=== PATIENT | male | born 1965 | race Caucasian/White ===

== ENCOUNTER → 2020-08-10 13:49 | Outpatient (BNVA) | payer OTHER, SELFPAY | PROVIDERS: Visit Provider Orthopaedic Surgery | DX: Z76.89 Persons encountering health services in other specified circumstances (principal) ==

== ENCOUNTER → 2020-09-21 12:22 | Outpatient (BNVA) | payer OTHER, SELFPAY | PROVIDERS: Visit Provider Orthopaedic Surgery | DX: Z76.89 Persons encountering health services in other specified circumstances (principal) ==

== ENCOUNTER 2020-10-31 08:00 | Outpatient (RCR) | payer OTHER, SELFPAY ==
--- NOTE | 2020-08-11 15:24 | MHC.PT.OD ---
[facility] [place] Office [place] Office [place] Office [address] Zafar Ryan [address] [phone] F: [phone] F: [phone] F: [phone] F: [phone] Physical Therapy Daily Note Diagnosis: Date of Surgery: 07/04/20 Date of Evaluation: 08/01/20 Treatments to Date: 4 Cancellations to Date: 0 No Shows to Date: 0 Authorized Visits: 26 Insurance End Date: 10/30/20 Precautions/ Contraindications:L QUAD TENDON REPAIR 07/04/20, aortic dissection (Nov 2018), HTN Subjective: Pt reports px levels are decreasing overall except for end range of stretching Pain Score: 4 Pain Location: scar Objective Flowsheet: Tests & Measures AROM=65* on ARRIVAL,PROM 75* END OF SESSION Slight ext lag only w/SLR Exercises Heel slide with strap and sliding board- 10 second hold SLR 3 X10 ISOMETRIC EXT MULTILEVEL 75* and 60* 1 x 10 ea 75*-45* ext 2 x 10 mini squat w/brace @30* flex max 2 x 10 wt shift on air ex lat/pf/df/CW/CCW x 30 STM for quad . Manual STM around knee and gentle massage to decrease swelling Modalities Assessment: Pt clayton 75* Flex PROM, 65* AROM. Pt clayton 75*-45* AROM Unlock brace 10* on week of 08-14-20 FROM EVAL: Pt is s/p repair of left quadriceps tendon on 07/04/[address] Pandya. He is weight bearing as tolerated and axillary crutches and brace locked in extension. Physical impairments include: decreased left knee ROM, impaired strength, edema, impaired quad control, impaired weight bearing, proprioceptive deficits, and gait deviations. Related functional limitations include: difficulty walking, negotiating stairs, squatting, performing personal care tasks, lifting, driving, standing, and performing bed mobility. Pt is an excellent candidate for physical therapy and will be seen 2-3x/week for 10 weeks in order to reduce impairments and improve limitations. Will follow quadriceps tendon protocol. Initial LEFI: . PT Plan: QUAD TENDON REPAIR PROTOCOL IN CHART: FROM SCRIPT 07/14/20 Isometric quad exercises, ankle pumps, WBAT with brace locked in extension, unlock to 15 degrees when not working and increase by 15 degrees each week. Unlock brace 10* on week of 08-14-20 Discharge Today? No Short Term Goals: In 3 weeks, Pt will demonstrate at least 100 degrees per protocol. In 5 weeks, Pt will demonstrate the ability to ambulate safely w/o brace during treatment sessions. 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 In 10 weeks, Pt to return to all activities of daily living. In 10 weeks, Pt to improve LEFI by at least 18 points. In 8 weeks, Pt to demonstrate full knee ROM.
--- NOTE | 2020-11-14 14:51 | MHC.PT.DC ---
[facility] [place] Office [place] Office [place] Office [address] Zafar Ryan 140 [facility] [phone] F: [phone] F: [phone] F: [phone] F: [phone] Physical Therapy Discharge Report Diagnosis: QUAD TENDON REPAIR Date of Surgery: 07/04/20 Date of Evaluation: 08/01/20 Date of Discharge: 10/31/20 Treatments to Date: 23 Cancellations to Date: 0 No Shows to Date: 0 Discharge Status: Achieved Goals Improved Function Independent with HEP Discharge Summary: GUNJAN DID WELL WITH THERAPY. HE WAS ABLE TO MEET ALL GOALS AND RETURN TO WORK WITHOUT RESTRICTION. HE IS ABLE TO SELF MANAGE ANY RESIDUAL SYMPTOMS AT THIS TIME AND IS INDEPENDENT WITH HIS HEP. BOTH ROM AND STRENGTH ARE WFLs. Electronically signed by: HIPOLITO SANCHES PT, DPT Please sign and return to therapist. Thank you for your referral.
== END 2020-11-14 14:55 | disposition other institution (70) ==
LOC: HO.PT 08:00
PROVIDERS: Visit Provider Physician Assistant
DX: S76.112D Strain of left quadriceps muscle, fascia and tendon, subsequent encounter (principal)
CPT/HCPCS: 97110; 97112; 97140; 97530

== ENCOUNTER 2025-06-05 15:53 | Emergency (ER) | payer OTHER, SELFPAY ==
--- NOTE | ~2025-06-05 | XR_ITS ---
CLINICAL HISTORY: Right knee pain Radiographs of the right knee, 4 views Comparison: None available Findings: There is no fracture or dislocation. No joint space narrowing. Trace patellofemoral compartment osteophytosis. Bone mineralization is normal. Moderate-sized joint effusion. Soft tissue swelling. Impression: No fracture. Moderate-sized joint effusion. Minimal degenerative change. This document has been electronically signed by: Bri Toribio MD on 06/05/2025 16:55:07
[2025-06-05 16:14] VITALS: BP 116/73; PULSE 72; RESP 18; TEMP 36.3; O2SAT 97; BMI 29.0
--- NOTE | 2025-06-05 16:18 | ED.GENADULT ---
HPI - General Adult General Chief complaint: Extremity Injury, Lower Stated complaint: slipped. possible right knee dislocation Time Seen by Provider: 06/05/25 18:05 Source: patient Limitations: no limitations History of Present Illness ED Provider: Deedee Mckeon PA-C HPI narrative: 59-year-old male presents with right knee pain. Patient states he was hiking, he subsequently slipped, falling, twisting his knee. Patient states he is able to bear weight, however he has limited range of motion secondary to swelling, and he feels as if ?the knee is locking up?. Denies use of blood thinners. Related Data Home Medications ?Medication ?Instructions ?Recorded ?Confirmed atorvastatin 80 mg tablet 80 mg PO BEDTIME 08/05/20 09/21/20 chlorthalidone 25 mg tablet 25 mg PO DAILY 08/05/20 09/21/20 isosorbide mononitrate 60 mg 60 mg PO DAILY 08/05/20 09/21/20 tablet,extended release 24 hr labetalol 200 mg tablet 600 mg PO TID 08/05/20 09/21/20 naproxen 500 mg tablet 500 mg PO Q12H 08/05/20 09/21/20 nifedipine 30 mg tablet,extended mg PO 08/05/20 09/21/20 release oxycodone 5 mg tablet 5 mg PO Q4H PRN moderate pain 08/05/20 09/21/20 Allergies Allergy/AdvReac Type Severity Reaction Status Date / Time No Known Allergies (No Known Allergy Verified 06/05/25 16:16 Allergies*) Review of Systems Review of Systems: Yes all other systems are reviewed and are negative Constitutional: Constitutional: Denies fatigue and Denies fever(s) Musculoskeletal: Musculoskeletal: Reports arthralgias and Reports joint swelling Endocrine: Endocrine: Denies fatigue PMF Past Medical History Attestation statement: The following information was validated with the patient. 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 Physical Exam ED Exam Exam: Alert well-appearing Vital Signs: Vital Signs - 24 hr 06/05/25 16:14 Temperature 97.4 F Pulse Rate 72 Respiratory Rate 18 Blood Pressure 116/73 Pulse Oximetry 97 Oxygen Delivery Method Room Air BMI result Body Mass Index 29.0 Const Orientation/consciousness: patient oriented x3 Resp Effort & Inspection: normal respiratory effort Cardio Other: Normal peripheral perfusion Skin Other: Warm dry no rash Neuro General: patient oriented x3, no focal motor deficits and CN's II-XI intact bilaterally Extrem Other: Swelling superior to the knee, limited flexion secondary to discomfort Psych Other: Cooperative Course Course Course Narrative: RME: 59 yold male presents to the ED for right knee pain after twisting knee while hiking and felt like knee when out of place. patient sttaes now knee is swollen and is not able to bear weight. Xray ordred Medical Decision Making Medical Decision Making [facility] Narrative: 59-year-old male presents with right knee pain. Patient states he was hiking, he subsequently slipped, falling, twisting his knee. Patient states he is able to bear weight, however he has limited range of motion secondary to swelling, and he feels as if ?the knee is locking up?. Denies use of blood thinners. No underlying relevant chronic issues History: Per patient I have considered the following differential diagnoses: Fracture, dislocation, contusion, sprain Plan: X-ray ordered from triage, there was no fracture or dislocation, the patient does have arthritic changes with osteophytes, and a joint effusion. He has a knee immobilizer, we will send with crutches. He already has a an orthopedist steady sees. I have independently reviewed the following tests: X-ray right knee:Findings: There is no fracture or dislocation. No joint space narrowing. Trace patellofemoral compartment osteophytosis. Bone mineralization is normal. Moderate-sized joint effusion. Soft tissue swelling. Impression: No fracture. Moderate-sized joint effusion. Minimal degenerative change. Discharge Plan Discharge Clinical Impression: Right knee sprain Patient Disposition: Home, Self-Care Instructions: Knee Sprain (ED), P.R.I.C.E. Treatment (ED) Additional Instructions: The x-ray was negative for fracture or dislocation, you do have a joint effusion, which is a collection of fluid secondary to your trauma. You also have arthritic changes noted in the x-ray read. You need to follow up with your orthopedist, you may have a ligamentous injury and require MRI as an outpatient. In the meantime use the knee immobilizer and crutches. Take either ibuprofen 600 mg taken every 6 hours with food, or naproxen 500 mg taken every 12 hours, as an anti-inflammatory. Prescriptions: No Action nifedipine 30 mg tablet extended release PO isosorbide mononitrate 60 mg tablet extended release 24 hr 60 mg PO DAILY chlorthalidone 25 mg tablet 25 mg PO DAILY labetalol 200 mg tablet 600 mg PO TID atorvastatin 80 mg tablet 80 mg PO BEDTIME oxycodone 5 mg tablet 5 mg PO Q4H PRN (Reason: moderate pain) naproxen 500 mg tablet 500 mg PO Q12H Discharge Date/Time: 06/05/25 19:23 Print Language: Argentine
== END 2025-06-05 19:23 | disposition home or self-care (01) ==
PROVIDERS: Emergency Provider Emergency Medicine
DX: S83.91XA Sprain of unspecified site of right knee, initial encounter (principal); M25.561 Pain in right knee; W01.0XXA Fall on same level from slipping, tripping and stumbling without subsequent striking against object, initial encounter; Y93.9 Activity, unspecified; Y92.9 Unspecified place or not applicable; Y99.8 Other external cause status; Z79.899 Other long term (current) drug therapy
CPT/HCPCS: 73564; 99281; 99283

== ENCOUNTER → 2025-06-05 16:17 | Outpatient (BNV) | payer OTHER, SELFPAY | PROVIDERS: Visit Provider Radiology Diagnostic Radiology | DX: M25.461 Effusion, right knee (principal) | CPT/HCPCS: 73564 ==

== ENCOUNTER 2025-06-06 12:58 | Outpatient (AMB) | payer OTHER, SELFPAY ==
--- NOTE | 2025-06-06 13:07 | A.OFFVIS_ITS ---
Vital Signs 06/06/25 13:20 Height 6 ft 1 in Weight 220 lb BMI 29.0 BP 140/97 H Blood Pressure Location Lt brachial Position Sitting Pulse 66 Intake Visit Reasons: ED f/u Right knee sprain/effusion Intake Note: Mckinley is a 59 year old male who presents today as a new patient for an ER follow up of right knee. Patient was hiking when he slipped causing him to falling, twisting his knee. X-rays were taken and he was referred to orthopedics. Patient reports discomfort inside his knee with bending. States yesterday he could not even bend his knee. Hx of left knee surgery. Allergies No Known Allergies (No Known Allergies*) Allergy (Verified 06/06/25 14:05) Medication List - Last Reconciled 06/06/25 by Farzana Jamison PA-C atorvastatin 80 mg PO BEDTIME chlorthalidone 25 mg PO DAILY isosorbide mononitrate ER 60 mg PO DAILY labetalol 600 mg PO TID naproxen 500 mg PO Q12H nifedipine ER mg PO HPI HPI ED f/u Right knee sprain/effusion: Details: 59 yo male presents to the office today for an injury he sustained to the right knee on 06/05/25 while hiking, he slipped and fell. He states there was something that felt weird but did not hear a pop. He states there was something limiting his bending. He was able to weight bear. He had a knee brace from previous injury which he is using with crutches. He was seen in the emergency department where x-rays were obtained and he was treated for an effusion and given a knee brace and referred to our office for ortho eval Of note the patient was diagnosed with an aortic dissection many years ago. He has since had left quad tendon repair with Dr. Pandya on 07/04/2020 without complications. He is not on any anticoagulant therapy. He does take medication for high blood pressure which is well controlled. Patient denies any new onset of symptoms which include shortness of breath chest pain or palpitations. Denies wheezing. 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 Review of Systems Const All systems reviewed & are unremarkable except as noted in HPI and below Physical Exam Vital Signs: Last Vital Signs Pulse 66 06/06/25 13:20 BP 140/97 H 06/06/25 13:20 BMI result Body Mass Index 29.0 Const General: cooperative, healthy appearing, comfortable, no acute distress, well developed and alert Orientation/consciousness: patient oriented x3 HEENT Head: Yes normal to inspection, Yes normocephalic and Yes atraumatic Eyes General: appearance normal, both eyes and all related structures Neck Neck: Yes normal visual inspection and Yes no lymphadenopathy Resp Effort & Inspection: normal respiratory effort and able to speak in complete sentences Cardio Rate: regular rate Peripheral pulses: Peripheral pulses 2+ throughout GI Inspection: Yes normal to inspection Palpation (GI): Soft to palpation Skin General skin exam: no rashes or lesions noted Neuro General: patient oriented x3 Extrem Other: Right knee skin is intact. He does have a moderate effusion with a palpable defect along the quad tendon. He is unable to perform active knee extension. Calf is supple and nontender neurovascularly intact. Psych Appearance: grossly normal Mental Status: mental status grossly normal Results Reviewed Results Reviewed: X-rays of the right knee obtained in the office today and reviewed by me show mild PF OA. Assessment & Plan Assessment & Plan (1) Quadriceps tendon rupture: Code(s): S76.119A - Strain of unspecified quadriceps muscle, fascia and tendon, initial encounter Category: Medical Plan: Dr. Pandya was available to see the patient with me today. Based off clinical exam findings the patient does have a an acute right quad tendon rupture which would benefit from surgical intervention for optimal functioning. The patient does understand nonsurgical intervention would result in significantly limited function of the right lower extremity. Given the patient's activity level and desire to continue working and remain active with activities such as hiking and mountain biking, it would be recommended to pursue surgical intervention. We discussed the procedure in detail along with the risks benefits and alternatives. Risks including but not limited to infection, injury to surrounding nerves and tissue and bone, small and large vessels, stiffness, rerupture of the tendon and need for further surgery, DVT/PE along with intraoperative complications including but not limited to . We discussed postoperative recovery which includes a brace for at least 6 weeks. The brace will be locked in extension for the 1st 2 weeks and then we will unlock the brace 15 degrees every week which will be guided by physical therapy. The patient will need to refrain from any type of impact or loading activities for the 1st 6-12 weeks postop. The patient does express understanding we would like to proceed with right quad tendon repair with Dr. Pandya. The patient will be booked accordingly. Orders: Orders XR knee RT 3V Today M17.11 - Unilateral primary osteoarthritis, right knee Coding Level of Care Code New Pt Level 4 (35264) Complex EM visit Add On G2081 Diagnoses Quadriceps tendon rupture S76.119P
[2025-06-06 13:20] VITALS: BP 140/97; PULSE 66; BMI 29.0
--- OUTSIDE RECORDS SUMMARY | 2025-06-06 13:37 | XMS_ITS | Clinical Summary ---
Author Organization [facility] Address [address] [facility] [address] [place] [address] Phone Care Team Providers Care Director Zone Name Role Phone Sharla Lieberman MD Primary Care Provider [phone] Allergies No known active allergies Medications aspirin (ST JESUS ALBERTO) 81 MG EC tablet Take 1 tablet by mouth 1 (one) time each day Active atorvastatin (LIPITOR) 80 MG tablet Take 1 tablet by mouth at bed time Active Docusate Sodium (DSS) 100 MG capsule Take 1 capsule by mouth 2 (two) times a day Active isosorbide mononitrate (IMDUR) 60 MG 24 hr tablet Take 1 tablet by mouth 1 (one) time each day Active labetalol (NORMODYNE) 200 MG tablet Take 1 tablet by mouth 3 (three) times a day Active NIFEdipine CC (ADALAT CC) 30 MG 24 hr tablet Take 1 tablet by mouth 2 (two) times a day Active Active Problems Problem Noted Date Diagnosed Date Acute nontraumatic kidney injury 12/17/2021 Chronic kidney disease stage 2 06/15/2021 Essential hypertension 06/15/2021 Hypertensive renal disease 06/15/2021 Family History Medical History Relation Comments Diabetes Father Hypertension Mother Relation Status Comments Father Mother Alive Social History Tobacco Use Types Packs/Day Years Used Date Smoking Tobacco: Former Smokeless Tobacco: Never Comments:Smoking History Inf o:Every day Alcohol Use Standard Drinks/Week Comments Yes 0 (1 standard drink = 0.6 oz pure alcohol) Alcoholic Drinks/day: Occasional social drink Comments Unknown Sex and Gender Information Value Date Recorded Sex Assigned at Not on file Legal Sex Female 4:56 PM EST Gender Identity Not on file Sexual Orientation Not on file Last Filed Vital Signs Vital Sign Reading Time Taken Comments Blood Pressure 124/60 04/11/2022 3:07 PM EDT Pulse 73 04/11/2022 3:07 PM EDT Temperature - - Respiratory Rate - - Oxygen Saturation 93% 04/11/2022 3:07 PM EDT Inhaled Oxygen Concentration - - Weight 107 kg (235 lb) 04/11/2022 3:07 PM EDT Height 185.4 cm (6' 1 ) 12/17/2021 3:14 PM EST Body Mass Index 31 12/17/2021 3:14 PM EST Plan of Treatment Health Maintenance Due Date Last Done Comments Breast Cancer Screening 1965 Hepatitis B Vaccine (1 of 3 - 19+ 3-dose series) 07/06 Pneumococcal Vaccine: 50+ Years (1 of 2 - PCV) 985 Colorectal Cancer Screening: Annual FOBT 2015 Colorectal Cancer Screening: Colonoscopy 2015 Colorectal Cancer Screening: Sigmoidoscopy 2015 Influenza Vaccine (#1) 2025 Insurance Comprehensive Benefits Comprehensive Benefits Care Teams Director Zone Relationship Specialty Start Date End Date Sharla Lieberman MD [address] [place] [address] PCP - General Internal Medicine 05/26/25
== END 2025-06-06 14:33 | disposition home or self-care (01) ==
LOC: HO.HOS 12:58
PROVIDERS: Visit Provider Physician Assistant
DX: S76.119A Strain of unspecified quadriceps muscle, fascia and tendon, initial encounter (principal)
CPT/HCPCS: 99204

== ENCOUNTER 2025-06-06 12:58 | Outpatient (REF) | payer OTHER, SELFPAY ==
--- NOTE | ~2025-06-06 | XR_ITS ---
EXAMINATION: XR KNEE, RIGHT CLINICAL INFORMATION: M17.11 - Unilateral primary osteoarthritis, right knee COMPARISON: None available. TECHNIQUE: AP bilateral standing, sunrise, and lateral views of the right knee. FINDINGS:Small amount joint fluid is present. There is faint amorphous calcification within the lateral greater than medial meniscus, increased since the prior. Intercondylar tubercles are peaked. There are small marginal osteophytes involving the medial and lateral joint lines and moderate osteophytes involving the lateral patellofemoral joint. There is mild narrowing of the lateral patellofemoral joint. Medial and lateral joint spaces are preserved. 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 Electronically signed by: Gabino Harman MD 06/06/2025 02:05 PM EDT
== END 2025-06-06 12:59 | disposition home or self-care (01) ==
LOC: HO.HOSX 12:58
PROVIDERS: Visit Provider Physician Assistant
DX: S76.111A Strain of right quadriceps muscle, fascia and tendon, initial encounter (principal); I10 Essential (primary) hypertension; I71.00 Dissection of unspecified site of aorta; M17.11 Unilateral primary osteoarthritis, right knee; Z79.899 Other long term (current) drug therapy; W01.0XXA Fall on same level from slipping, tripping and stumbling without subsequent striking against object, initial encounter; Y93.01 Activity, walking, marching and hiking; Y92.89 Other specified places as the place of occurrence of the external cause
CPT/HCPCS: 73562

== ENCOUNTER → 2025-06-06 13:14 | Outpatient (BNV) | payer OTHER, SELFPAY | PROVIDERS: Visit Provider Radiology Diagnostic Radiology | DX: M17.11 Unilateral primary osteoarthritis, right knee (principal) | CPT/HCPCS: 73562 ==

== ENCOUNTER → 2025-06-07 11:50 | Day surgery (SDC) | payer OTHER, SELFPAY ==
--- OUTSIDE RECORDS SUMMARY | 2025-06-07 08:57 | XMS_ITS | Clinical Summary ---
Author Organization [facility] Address [address] [facility] [address] [place] [address] Phone Care Team Providers Care Tilt Wall Supervisor Name Role Phone Sharla Lieberman MD Primary Care Provider [phone] Allergies No known active allergies Medications aspirin [...] Insurance Comprehensive Benefits Comprehensive Benefits Care Teams Tilt Wall Supervisor Relationship Specialty Start Date End Date Sharla Lieberman MD [address] [place] [address] PCP - General Internal Medicine 05/26/25
--- NOTE | 2025-06-07 09:43 | HO.ANESPROP2 ---
Documented by User: Natalya Contreras NP 06/07/25 09:47 HPI - Anesthesia Eval Consult details Narrative: 59 yr old male for right quadricep tendon repair Active, hiker H/O aortic dissection many yrs ago S/P left quad tendon repair in 2019 without complications PMFSH Active Problems Active Problems: All Active Problems (Updated 06/06/25 @ 00:01 by Emily Bautista) Quadriceps tendon rupture (Acute) Past Medical History Medical History Hypertension Aortic dissection Quadriceps tendon rupture Surgical History Surgical History Hx of left knee surgery Social History Social History Alcohol intake: never Patient Tobacco Use Status: Former Tobacco user Have you been hit, kicked, punched, or otherwise hurt by someone within the past year? 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 Meds Allergies Allergy/AdvReac Type Severity Reaction Status Date / Time No Known Allergies (No Known Allergy Verified 06/06/25 14:05 Allergies*) Home Medications ?Medication ?Instructions ?Recorded ?Confirmed ?Last Taken ?Type atorvastatin 80 mg tablet 80 mg PO BEDTIME 08/05/20 06/07/25 06/06/25 History chlorthalidone 25 mg tablet 25 mg PO DAILY 08/05/20 06/07/25 06/07/25 History isosorbide mononitrate 60 mg 60 mg PO DAILY 08/05/20 06/07/25 06/07/25 History tablet,extended release 24 hr labetalol 200 mg tablet 600 mg PO TID 08/05/20 06/07/25 06/07/25 History naproxen 500 mg tablet 500 mg PO Q12H 08/05/20 06/07/25 06/06/25 History nifedipine 30 mg tablet,extended 30 mg PO BID 08/05/20 06/07/25 06/07/25 History release Documented by User: Cristina Abdalla MD 06/07/25 14:00 [facility] Past Medical History Medical History Hypertension Aortic dissection Quadriceps tendon rupture Family History Family history of problems with anesthesia: No Surgical History Surgical History Hx of left knee surgery History of Problems with Anesthesia: No Social History Social History Alcohol intake: never Patient Tobacco Use Status: Former Tobacco user Have you been hit, kicked, punched, or otherwise hurt by someone within the past year? 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 [employer] Allergies Allergy/AdvReac Type Severity Reaction Status Date / Time No Known Allergies (No Known Allergy Verified 06/06/25 14:05 Allergies*) Home Medications ?Medication ?Instructions ?Recorded ?Confirmed ?Last Taken ?Type atorvastatin 80 mg tablet 80 mg PO BEDTIME 08/05/20 06/07/25 06/06/25 History chlorthalidone 25 mg tablet 25 mg PO DAILY 08/05/20 06/07/25 06/07/25 History isosorbide mononitrate 60 mg 60 mg PO DAILY 08/05/20 06/07/25 06/07/25 History tablet,extended release 24 hr labetalol 200 mg tablet 600 mg PO TID 08/05/20 06/07/25 06/07/25 History naproxen 500 mg tablet 500 mg PO Q12H 08/05/20 06/07/25 06/06/25 History nifedipine 30 mg tablet,extended 30 mg PO BID 08/05/20 06/07/25 06/07/25 History release Exam Airway Mallampati Class: II TM Dist: >3cm Neck ROM: Full Heart: rrr Lungs: cta Assessment and Plan Assessment Anesthesia Assessment: Anesthesia Plan Discussed and Chart Reviewed Final Anesthetic Review Family History of Problems with Anesthesia: No History of Problems with Anesthesia: No NPO: Yes ASA Class: III Final Preanesthetic Review: No Changes in Pt Med Stat, Meds/Allgs Chart Reviewed, Consent Obtained/Reviewed and Anes Risks/Benef Reviewed Patient Risk: Intermediate Procedure Risk: Intermediate Anesthetic Plan Anesthetic Plan: GA, Regional Block and Agree w/ Assess. and Plan Disposition: Standard PACU
[2025-06-07 10:02] VITALS: BMI 29.0
[2025-06-07 12:00] VITALS: BP 118/76; PULSE 71; RESP 20; TEMP 36.9; O2SAT 98
[2025-06-07] MEDS: Lactated Ringers 1,000 ML 100 ML IVCONT (12:19)
--- NOTE | 2025-06-07 13:33 | MHC.SHP ---
Pre-Procedural Eval Section A - 24 Hr Update-Section A only Date of Service: 06/07/25 The patient is an INPATIENT: No Changes since office visit: No Cold of Flu in the past 2 weeks, No New Medical Problems, No Changes in Medication and No Patient answered all questions The patient has been examined within 24 hours of the surgical procedure. The History & Physical has been completed within 30 days and I have reviewed it.: Yes Section B - Complete if H&P > 30 days Chief Complaint: Other specified injury of unspecified quadriceps Allergies: Allergies Allergy/AdvReac Type Severity Reaction Status Date / Time No Known Allergies (No Known Allergy Verified 06/06/25 14:05 Allergies*) Plan I have reviewed the history and physical and performed a pertinent physical examination on my patient. No changes have occurred unless specified. Time Spent With Patient Time: Total time managing care of this patient today ____ minutes.
--- NOTE | 2025-06-07 14:32 | PC.NURSE ---
dr boateng at bedside has hx aortic valve dissection high risk explaining to patient risk pt may be cancelled
--- NOTE | 2025-06-07 14:49 | PC.NURSE ---
dr kendrick speaking to patient concerning surgery
--- NOTE | 2025-06-07 15:27 | PC.NURSE ---
pt cancelled question being early add on tomorrow
== END ==
LOC: HO.SSS 11:52
PROVIDERS: Visit Provider Orthopaedic Surgery
DX: S76.199 Other specified injury of unspecified quadriceps muscle, fascia and tendon (principal); Z53.8 Procedure and treatment not carried out for other reasons; Z86.79 Personal history of other diseases of the circulatory system; Z98.890 Other specified postprocedural states; Z79.1 Long term (current) use of non-steroidal anti-inflammatories (NSAID); Z79.899 Other long term (current) drug therapy; Z87.891 Personal history of nicotine dependence
CPT/HCPCS: J0131; J0665; J0690; J2795

== ENCOUNTER 2025-06-08 08:22 | Day surgery (SDC) | payer OTHER, SELFPAY ==
[2025-06-08] VITALS (23 sets, daily range): BP systolic 92–124; BP diastolic 50–74; PULSE 50–71; RESP 12–18; TEMP 36.1–36.6; O2SAT 94–97; BMI 29.0
--- OUTSIDE RECORDS SUMMARY | 2025-06-08 08:07 | XMS_ITS | Clinical Summary ---
Author Organization [facility] Address [address] [facility] [address] [place] [address] Phone Care Team Providers Care Correspondence Transcriber Name Role Phone Sharla Lieberman MD Primary Care Provider [phone] [phone] Allergies No known active allergies Medications aspirin [...] Influenza Vaccine (#1) 2025 [place] [address] [place] [address] Care Teams Correspondence Transcriber Relationship Specialty Start Date End Date Sharla Lieberman MD [address] [place] [address] PCP - General Internal Medicine 05/26/25
[2025-06-08] MEDS: Lactated Ringers 1,000 ML 80 ML IVCONT (09:08)
--- NOTE | 2025-06-08 09:09 | HO.ANESPROP2 ---
[facility] Active Problems Active Problems: All Active Problems Quadriceps tendon rupture (Acute) Past Medical History Medical History (Updated 06/08/25 @ 08:48 by Rhonda Ma RN) Kidney disease Finger contusion Hypertension Aortic dissection Quadriceps tendon rupture Family History Family history of problems with anesthesia: No Surgical History Surgical History (Updated 06/08/25 @ 08:47 by Rhonda Ma RN) H/O colonoscopy History of surgery Hx of left knee surgery History of Problems with Anesthesia: No Social History Social History Alcohol intake: never Patient Tobacco Use Status: Former Tobacco user Use of substances other than those prescribed or required for medical reasons: Yes Substance Use Type Other:: occassionally Are you DNR?: No Advance Directives: No Advance Directives Information Provided: Yes Poor oral hygiene: No Current occupational status: employed 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 Meds Allergies Allergy/AdvReac Type Severity Reaction Status Date / Time No Known Allergies (No Known Allergy Verified 06/06/25 14:05 Allergies*) Active Medications: Current Medications Lactated Ringer's (Lr) 1,000 mls @ 80 mls/hr IVCONT .[id number] [place] Last Admin: 06/08/25 09:08 Dose: 80 mls/hr Home Medications ?Medication ?Instructions ?Recorded ?Confirmed ?Last Taken ?Type atorvastatin 80 mg tablet 80 mg PO BEDTIME 08/05/20 06/08/25 06/06/25 History chlorthalidone 25 mg tablet 25 mg PO DAILY 08/05/20 06/08/25 06/07/25 History isosorbide mononitrate 60 mg 60 mg PO DAILY 08/05/20 06/08/25 06/07/25 History tablet,extended release 24 hr labetalol 200 mg tablet 600 mg PO TID 08/05/20 06/08/25 06/08/25 09:05 History naproxen 500 mg tablet 500 mg PO Q12H 08/05/20 06/08/25 06/06/25 History nifedipine 30 mg tablet,extended 30 mg PO BID 08/05/20 06/08/25 06/08/25 History release Exam Height,Weight and Vital Signs: Height 6 ft 1 in Weight 99.79 kg Last Vital Signs Temp 97.2 F 06/08/25 08:58 Pulse 71 06/08/25 08:58 Resp 16 06/08/25 08:58 BP 124/74 06/08/25 08:58 Pulse Ox 96 06/08/25 08:58 O2 Del Method Room Air 06/08/25 08:58 Airway Mallampati Class: II TM Dist: >3cm Neck ROM: Full Assessment and Plan Assessment Anesthesia Assessment: Anesthesia Plan Discussed and Chart Reviewed Final Anesthetic Review Family History of Problems with Anesthesia: No History of Problems with Anesthesia: No NPO: Yes ASA Class: III Final Preanesthetic Review: No Changes in Pt Med Stat, Meds/Allgs Chart Reviewed, Consent Obtained/Reviewed and Anes Risks/Benef Reviewed Patient Risk: Intermediate Procedure Risk: Low Anesthetic Plan Anesthetic Plan: Spinal Disposition: Standard PACU
--- NOTE | 2025-06-08 10:13 | MHC.SHP ---
Pre-Procedural Eval Section A - 24 Hr Update-Section A only Date of Service: 06/08/25 The patient is an INPATIENT: No Changes since office visit: No Cold of Flu in the past 2 weeks, No New Medical Problems, No Changes in Medication and No Patient answered all questions The patient has been examined within 24 hours of the surgical procedure. The History & Physical has been completed within 30 days and I have reviewed it.: Yes Section B - Complete if H&P > 30 days Chief Complaint: Other specified injury of unspecified quadriceps Allergies: Allergies Allergy/AdvReac Type Severity Reaction Status Date / Time No Known Allergies (No Known Allergy Verified 06/06/25 14:05 Allergies*) Plan I have reviewed the history and physical and performed a pertinent physical examination on my patient. No changes have occurred unless specified. Time Spent With Patient Time: Total time managing care of this patient today ____ minutes.
--- NOTE | 2025-06-08 11:43 | P.BOP_ITS ---
Brief Operative Note Date of Service: 06/08/25 Pre-op diagnosis: Right quad rupture Post-op diagnosis: same Procedure: Right quad repair Implants: Veliz and Nephew Double loaded 4.75 helacoil x 2 Collagen Regeneten bio inductive patch, large Surgeon: Kenny Pandya MD Was an Assistant Sales Director used for this Procedure?: Yes Assistant Sales Director: Vivian Elmore Estimated blood loss (mL): 50 IV fluids (mL): 500 Pathology: none sent Condition: stable Disposition: PACU
--- NOTE | 2025-06-09 07:58 | W.PM.OPN ---
Operative Note Operative Note Date of Service: 06/08/25 Narrative: Date of Service: 06/08/25 Pre-op diagnosis: Right quad rupture Post-op diagnosis: same Procedure: Right quad repair Implants: Veliz and Nephew Double loaded 4.75 helacoil x 2 Collagen Regeneten bio inductive patch, large Surgeon: Kenny Pandya MD Was an Engineering Technical Analyst used for this Procedure?: Yes Engineering Technical Analyst: Vivian Elmore Estimated blood loss (mL): 50 IV fluids (mL): 500 Pathology: none sent Condition: stable Disposition: PACU Indications: 51-year-old gentleman with a full-thickness quad tear on the right. Underlying aortic dissection which is chronic and stable and was discussed at length and documented in my preoperative evaluation. Despite the risks informed consent form was signed and we proceeded forward with surgery. Spinal anesthesia was obtained. Procedure in detail: Patient was brought to the operating room and placed supine on the surgical table. He was prepped and draped in standard sterile fashion and a time out was called to identify proper site, proper procedure and IV antibiotics per weight were administered. I began by making a ~6 cm incision over the patella and distal quad tendon. I dissected down to the fascia overlying the quadriceps tendon. I incised through this and there was a near complete quadriceps avulsion without retraction. The wound was irrigated and the ends of the quadriceps was debrided and cleaned and the attachment site on the patella was debrided with a rongeur down to bleeding bone. I then placed two double loaded Healicoil 4.75 anchors into the patella. These were pre tapped. One limb from each anchor was then whip stitched up and back through each side of the quadriceps tendon using [place] locking stitch. Theses limbs were then tied to their corresponding tape and re-approximated to the patellar insertion with the leg in hyper extension. The repair was anatomic. I oversewed the tendon with the remaining FiberWire. The medial retinaculum was then closed with a FiberWire. Given that he had a identical tear on the contralateral leg several years ago I placed a Regeneten collagen bio inductive patch over the insertion site of the quad tendon into the patella. This was kept in place with 2 0 absorbable suture. I irrigated the wound and the joint copiously and then closed with absorbable suture and yves. The patient was placed in a locked brace in extension and extubated and brought to the recovery room in stable condition. There were no known complications.
== END 2025-06-08 16:46 | disposition home or self-care (01) ==
PROVIDERS: Visit Provider Orthopaedic Surgery
PROC: (CPT 27385; principal; 2025-06-08 11:40)
DX: S76.111A Strain of right quadriceps muscle, fascia and tendon, initial encounter (principal); M25.461 Effusion, right knee; M17.11 Unilateral primary osteoarthritis, right knee; X50.1XXA Overexertion from prolonged static or awkward postures, initial encounter; W01.0XXA Fall on same level from slipping, tripping and stumbling without subsequent striking against object, initial encounter; Y93.01 Activity, walking, marching and hiking; Y92.838 Other recreation area as the place of occurrence of the external cause; Y99.9 Unspecified external cause status; I10 Essential (primary) hypertension; I71.00 Dissection of unspecified site of aorta; Z79.1 Long term (current) use of non-steroidal anti-inflammatories (NSAID); Z98.890 Other specified postprocedural states; Z79.899 Other long term (current) drug therapy
CPT/HCPCS: 27385; C1713; C1763; J0690; J1200; J2250; J2795

== ENCOUNTER → 2025-06-08 08:22 | Outpatient (BNV) | payer OTHER, SELFPAY | PROVIDERS: Visit Provider Orthopaedic Surgery | DX: S76.111A Strain of right quadriceps muscle, fascia and tendon, initial encounter (principal) | CPT/HCPCS: 27385 ==

== ENCOUNTER 2025-06-16 11:18 | Outpatient (AMB) | payer OTHER, SELFPAY ==
--- NOTE | 2025-06-16 11:21 | MHC.OFFVIS ---
Intake Visit Reasons: PO RT quad tendon repair 06/08/25 NE Intake Note: Mckinley is a 59 year old male who presents today for a post operative visit after undergoing a right quad tendon repair on 06/07/25, performed by Dr. Pandya. Patient reports he is doing well, he does have some soreness as expected. He has no concerns today. Allergies No Known Allergies (No Known Allergies*) Allergy (Verified 06/16/25 11:25) HPI HPI PO RT quad tendon repair 06/08/25 NE: Details: 59-year-old gentleman returns to the office today status post right quad tendon repair on 06/08/2025. He is doing well and has no concerns today he continues to wear his brace in full extension without bending. 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 No erythema mild swelling. Leg is in extension. Calf is supple and nontender neurovascularly intact. Assessment & Plan Assessment & Plan (1) Quadriceps tendon rupture: Code(s): S76.119A - Strain of unspecified quadriceps muscle, fascia and tendon, initial encounter Category: Medical Plan: [place] will remain intact for another week. He will continue with brace locked in extension at all times. Weightbearing with crutches. He will see me back in 1 week for staple removal, sooner if needed. Coding Level of Care Code Global (53659) Diagnoses Quadriceps tendon rupture S76.119A
--- OUTSIDE RECORDS SUMMARY | 2025-06-16 12:00 | XMS_ITS | Clinical Summary ---
Author Organization [facility] Address [address] [facility] [address] [place] [address] Phone Care Team Providers Care Filer Finish Name Role Phone Sharla Lieberman MD Primary Care Provider [phone] Allergies No known active allergies Medications aspirin [...] Insurance Comprehensive Benefits Comprehensive Benefits Care Teams Filer Finish Relationship Specialty Start Date End Date Sharla Lieberman MD [address] [place] [address] PCP - General Internal Medicine 05/26/25
== END 2025-06-16 12:10 | disposition home or self-care (01) ==
LOC: HO.HOS 11:18
PROVIDERS: Visit Provider Physician Assistant
DX: S76.119A Strain of unspecified quadriceps muscle, fascia and tendon, initial encounter (principal)
CPT/HCPCS: 99024

== ENCOUNTER 2025-06-23 08:25 | Outpatient (AMB) | payer OTHER, SELFPAY ==
--- NOTE | 2025-06-23 08:32 | A.OFFVIS_ITS ---
Intake Visit Reasons: PO RT quad tendon repair 06/08/25 NE Intake Note: Mckinley is a 59 year old male who presents today for a post operative visit after undergoing a right quad tendon repair on 06/07/25, performed by Dr. Pandya. At his last visit he was instructed to follow up in a week for staple removal. Patient reports he is doing well, he has no concerns today. Allergies No Known Allergies (No Known Allergies*) Allergy (Verified 06/23/25 08:33) Medication List - Last Reconciled 06/23/25 by Farzana Jamison PA-C atorvastatin 80 mg PO BEDTIME chlorthalidone 25 mg PO DAILY isosorbide mononitrate ER 60 mg PO DAILY labetalol 600 mg PO TID naproxen 500 mg PO Q12H nifedipine ER 30 mg PO BID oxycodone-acetaminophen 5-325 mg (Percocet) 1 tab PO Q4-6H PRN 7 days HPI HPI PO RT quad tendon repair 06/08/25 NE: Details: 59-year-old gentleman returns to the office today 2 weeks status post right quad tendon repair on 06/08/[address] Pandya. He continues to weightbear as tolerated with the brace locked in extension. He has no concerns today. 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 No erythema mild swelling. Leg is in extension. Calf is supple and nontender neurovascularly intact. Assessment & Plan Assessment & Plan (1) Quadriceps tendon rupture: Code(s): S76.119A - Strain of unspecified quadriceps muscle, fascia and tendon, initial encounter Category: Medical Plan: [place] removed today Steri-Strips applied. He will continue to weightbear as tolerated with the brace locked in extension with walking. He will contact physical therapy to make an appointment. He can begin unlocking the brace with physical therapy 15 degrees and advance 15 degrees each week with a goal of 90 degrees at week 8. Patient will see me back in 6 weeks for re-evaluation, sooner if needed. Orders: Orders PT Evaluation and Treatment Today S76.119A - Strain of unspecified quadriceps muscle, fascia and tendon, initial encounter Coding Level of Care Code Global (02047) Diagnoses Quadriceps tendon rupture S76.119A
--- OUTSIDE RECORDS SUMMARY | 2025-06-23 08:39 | XMS_ITS | Clinical Summary ---
Author Organization [facility] Address [address] [facility] [address] [place] [address] Phone Care Team Providers Care Manufacturing Chief Engineer Name Role Phone Sharla Lieberman MD Primary Care Provider [phone] Allergies No known active allergies Medications aspirin [...] Influenza Vaccine (#1) 2025 [place] [address] [place] [address] Care Teams Manufacturing Chief Engineer Relationship Specialty Start Date End Date Sharla Lieberman MD [address] [place] [address] PCP - General Internal Medicine 05/26/25
== END 2025-06-23 08:47 | disposition home or self-care (01) ==
LOC: HO.HOS 08:30
PROVIDERS: Visit Provider Physician Assistant
DX: S76.119A Strain of unspecified quadriceps muscle, fascia and tendon, initial encounter (principal)
CPT/HCPCS: 99024

== ENCOUNTER 2025-07-25 09:26 | Outpatient (AMB) | payer OTHER, SELFPAY ==
--- NOTE | 2025-07-25 09:30 | MHC.OFFVIS ---
Intake Visit Reasons: PO-RT quad tendon repair 06/08/25 NE Intake Note: Mckinley is a 59 year old male who presents today for a post operative visit after undergoing a right quad tendon repair on 06/07/25, performed by Dr. Pandya. At his last visit he was to weight bear as tolerated with brace locked in extension, continue working with physical therapy and follow up in 6 weeks. Patient reports he continues to attend physical therapy. He states he is doing well with no concerns today. Allergies No Known Allergies (No Known Allergies*) Allergy (Verified 07/25/25 09:33) Medication List - Last Reconciled 07/25/25 by Farzana Jamison PA-C atorvastatin 80 mg PO BEDTIME chlorthalidone 25 mg PO DAILY isosorbide mononitrate ER 60 mg PO DAILY labetalol 600 mg PO TID naproxen 500 mg PO Q12H nifedipine ER 30 mg PO BID HPI HPI PO-RT quad tendon repair 06/08/25 NE: Details: 60-year-old gentleman returns to the office today 6 weeks status post right quad tendon repair on 06/08/[address] Pandya. The patient comes in ambulating with his brace. He is progressing well with physical therapy working on his quad strength and motion. He remains out of work. 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 Patient has range of motion is 0-95 degrees. He has good quad activation. Calf is supple and nontender neurovascularly intact. Assessment & Plan Assessment & Plan (1) Quadriceps tendon rupture: Code(s): S76.119A - Strain of unspecified quadriceps muscle, fascia and tendon, initial encounter Category: Medical Plan: The patient will continue working with physical therapy for motion and quad strength. We will continue to increase his range of motion in the brace and should be able to discontinue the brace between 10-12 weeks based on quad function. Patient will remain out of work and see us back in 6-8 weeks for follow up, sooner if needed. Coding Level of Care Code Global (47786) Diagnoses Quadriceps tendon rupture S76.119A
--- OUTSIDE RECORDS SUMMARY | 2025-07-25 11:15 | XMS_ITS | Clinical Summary ---
Author Organization [facility] Address [address] [facility] [address] [place] [address] Phone Care Team Providers Care Chinese Language Professor Name Role Phone Sharla Lieberman MD Primary Care Provider [phone] [phone] Allergies No known active allergies Medications aspirin [...] Insurance Comprehensive Benefits Comprehensive Benefits Care Teams Chinese Language Professor Relationship Specialty Start Date End Date Sharla Lieberman MD [address] [place] [address] PCP - General Internal Medicine 05/26/25
== END 2025-07-25 09:45 | disposition home or self-care (01) ==
LOC: HO.HOS 09:26
PROVIDERS: Visit Provider Physician Assistant
DX: S76.119A Strain of unspecified quadriceps muscle, fascia and tendon, initial encounter (principal)
CPT/HCPCS: 99024

== ENCOUNTER 2025-09-08 08:51 | Outpatient (AMB) | payer OTHER, SELFPAY ==
--- NOTE | 2025-09-08 08:52 | A.OFFVIS_ITS ---
Intake Visit Reasons: PO-RT quad tendon repair 06/08/25 NE Intake Note: Mckinley is a 59 year old male who presents today for a post operative visit after undergoing a right quad tendon repair on 06/07/25, performed by Dr. Pandya. At his last visit he was instructed to continue working with physical therapy. He will remain out of work and follow up in 6-8 weeks. Today patient reports that he is doing well, he does mention that he continues to have mild swelling. He has completed physical therapy, he does continue to perform at home exercises. Allergies No Known Allergies (No Known Allergies*) Allergy (Verified 09/08/25 08:59) HPI HPI PO-RT quad tendon repair 06/08/25 NE: Details: 60-year-old gentleman returns to the office today 3 months status post right quad tendon repair with Dr. Pandya. The patient states he has completed his physical therapy and continues to work on quad strength and glute strength at home. He states he is doing well with activities however he does notice when he goes downstairs he does have some weakness. He does not feel any instability. 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 Patient has range of motion is 0-95 degrees. He has good quad activation with mild weakness. Calf is supple and nontender neurovascularly intact. Assessment & Plan Assessment & Plan (1) Quadriceps tendon rupture: Code(s): S76.119A - Strain of unspecified quadriceps muscle, fascia and tendon, initial encounter Category: Medical Qualifiers: Encounter type: subsequent encounter Laterality: right Qualified Code(s): S76.111D - Strain of right quadriceps muscle, fascia and tendon, subsequent encounter Plan: Three months status post right quad tendon repair with Dr. Pandya. The patient will continue with his home exercises of quad and glute strengthening. He was fit for a playmaker hinged knee brace in the office today to use with activities until he regains full quad strength. He was also given a return to work note for September 12 without restrictions. If there is any questions or concerns he will contact our office otherwise follow up as needed. Coding Level of Care Code Global (76536) Diagnoses Rupture of right quadriceps tendon, subsequent encounter S76.111D Encounter type: subsequent encounter Laterality: right
--- OUTSIDE RECORDS SUMMARY | 2025-09-08 09:49 | XMS_ITS | Clinical Summary ---
Author Organization [facility] Address [address] [facility] [address] [place] [address] Phone Care Team Providers Care Repair Department Supervisor Name Role Phone Sharla Lieberman MD Primary Care Provider [phone] [phone] Allergies No known active allergies Medications aspirin [...] Insurance Comprehensive Benefits Comprehensive Benefits Care Teams Repair Department Supervisor Relationship Specialty Start Date End Date Sharla Lieberman MD [address] [place] [address] PCP - General Internal Medicine 05/26/25
== END 2025-09-08 09:37 | disposition home or self-care (01) ==
PROVIDERS: PCP Pediatrics; Visit Provider Physician Assistant
DX: S76.111D Strain of right quadriceps muscle, fascia and tendon, subsequent encounter (principal)
CPT/HCPCS: 99212